=== PATIENT | male | born 1940 | race Caucasian/White ===

== ENCOUNTER 2020-04-14 06:01 | Day surgery (SDC) | payer OTHER ==
[2020-04-06 12:34] LABS: BASOPHILS % (AUTO) 1.1 % (0.0-5.0); EOSINOPHILS % (AUTO) 2.7 % (0.0-8.0); HEMATOCRIT 45.9 % (42-54); LYMPHOCYTES % (AUTO) 23.2 % (21.0-51.0); MEAN CORPUSCULAR HEMOGLOBIN 30.5 pg (27.0-33.0); MEAN CORPUSCULAR HGB CONC 33.1 g/dL (32.0-36.0); MEAN CORPUSCULAR VOLUME 92.2 fL (79-99); MONOCYTES % (AUTO) 9.1 % (3.0-13.0); NEUTROPHILS % (AUTO) 63.6 % (40.0-77.0); PLATELET COUNT (AUTO) 167 K/uL (130-400); RED BLOOD CELL COUNT(AUTO) 4.98 MIL/uL (4.50-6.20); RED CELL DISTRIBUTION WIDTH 12.4 % (11.0-15.5); WHITE BLOOD COUNT (AUTO) 3.8 K/uL (4.8-10.8)
[2020-04-06 12:42] LABS: POTASSIUM 5.6 mmol/L (3.5-5.1)
[2020-04-12 15:05] VITALS: BP 172/79
[~2020-04-14] VITALS: Ht 175.3 cm; Wt 70.4 kg
[2020-04-14] VITALS (16 sets, daily range): BP systolic 94–138; BP diastolic 52–68
[2020-04-14] MEDS: CEFAZOLIN SODIUM 1 GM VIAL IVP SCH ×2 (05:00→08:10)
[~2020-04-14 06:01] MED LIST: TEMA15CA PO
[2020-04-14] MEDS ORDERED: LACTATED RINGERS 1000ML 1,000 ML IV ONE (06:38)
[2020-04-14] MEDS ORDERED: PROPOFOL 10 MG/ML 20ML VIAL IV ONE (07:17)
[2020-04-14] MEDS ORDERED: LIDOCAINE HCL MPF 1% 5ML VIAL ONE (07:17)
[2020-04-14] MEDS ORDERED: FENTANYL CITRATE PF 50 MCG/1 ML 2ML VIAL ONE (07:17)
[2020-04-14] MEDS ORDERED: SUCCINYLCHOLINE CHLORIDE 20 MG/ML 10 ML VIAL ONE (07:17)
[2020-04-14] MEDS ORDERED: ROCURONIUM 10MG/1ML SYR 10 MG/ML ML ONE (07:17)
[2020-04-14] MEDS ORDERED: ROPIVACAINE 0.5% 5MG/ML 30ML IJ ONE (07:21)
[2020-04-14] MEDS ORDERED: SODIUM CHLORIDE 0.9% 10 ML VIAL ONE (07:46)
[2020-04-14] MEDS ORDERED: DEXAMETHASONE SOD PHOSPHATE 4 MG/ML 1ML VIAL ONE (07:46)
[2020-04-14] MEDS ORDERED: BUPIVACAINE/PF 0.5% 10ML VIAL ONE (08:06)
[2020-04-14] MEDS ORDERED: EPHEDRINE SULFATE 50 MG/ML AMPULE ONE (08:13)
[2020-04-14] MEDS ORDERED: NEOSTIGMINE 5MG/5ML SYR IV ONE (09:37)
[2020-04-14] MEDS ORDERED: GLYCOPYRROLATE 1 MG/5 ML SYRINGE ONE (09:37)
[2020-04-14] MEDS ORDERED: KETOROLAC TROMETHAMINE 30MG/ML ONE (09:46)
== END 2020-04-14 11:36 | disposition home or self-care (01) ==
LOC: DAH 06:01
PROVIDERS: ATTEND Orthopaedic Surgery
DX: S83.241A Other tear of medial meniscus, current injury, right knee, initial encounter (principal); M17.11 Unilateral primary osteoarthritis, right knee; M76.61 Achilles tendinitis, right leg; M66.861 Spontaneous rupture of other tendons, right lower leg; Z98.890 Other specified postprocedural states; Z20.828 Contact with and (suspected) exposure to other viral communicable diseases; Z79.899 Other long term (current) drug therapy; X58.XXXA Exposure to other specified factors, initial encounter; Y93.89 Activity, other specified; Y92.89 Other specified places as the place of occurrence of the external cause; Y99.8 Other external cause status
CPT/HCPCS: 27650; 29881; 36415; 64445; 76942; 80048; 85025; 93005; A4215; A4221; A4222; A4223; A4600; A4606; A4649 ×3; A4663; A4930; A5120; A6223; A6260; C9803; J0330; J0690; J1100; J1885; J2704; J2710; J2795; J3010; J3490 ×4; J7120 ×2; U0003